=== PATIENT | male | born 1990 | race Caucasian/White ===

== ENCOUNTER 2017-04-30 13:44 | Emergency (ER) | payer OTHER ==
[~2017-04-30 13:44] MED LIST: ALLEGRA PO; BUSPAR PO; CELEXA; EFFEXOR PO; FLEXERIL10 MG PO; METHADOSE; NAPROSYN500 MG PO; NEURONTIN
[2017-04-30 14:36] LABS: BASOPHIL% 0.5 % (0-2.5); EOSINOPHIL# 0.1 X10e3 (0-0.7); EOSINOPHIL% 1.8 % (0.0-7.0); HEMATOCRIT 44.6 % (38.0-50.0); HEMOGLOBIN 15.4 gm/dL (13.0-16.0); LYMPHOCYTE# 1.7 X10e3 (1.0-3.5); LYMPHOCYTE% 26.1 % (17.0-45.0); MEAN CELL VOLUME 89.8 FL (83-96); MEAN CORPUSCULAR HGB CONC 34.5 g/dL (30-36); MEAN PLATELET VOLUME 8.3 FL (6.5-11.5); MONOCYTE# 0.7 X10e3 (0-1.0); NEUTROPHIL# 4.1 X10e3 (1.5-7.1); NEUTROPHIL% 61.6 % (40-75); PLATELET COUNT 216 X10e3 (140-420); RED BLOOD COUNT 4.96 X10e (3.90-5.60); RED CELL DISTRIBUTION WIDTH 13.5 % (11.0-15.5); WHITE BLOOD COUNT 6.7 X10e3 (4.0-10.5)
[2017-04-30 14:40] LABS: DIFF IND NO
[2017-04-30 14:52] LABS: ALBUMIN SERUM 4.2 g/dL (3.5-5.0); BILIRUBIN,TOTAL 0.6 mg/dL (0.2-2.0); CALCIUM SERUM 8.9 mg/dL (8.4-10.2); CREATININE SERUM 0.6 mg/dL (0.6-1.4); GLOM FILT RATE Estimated 136.9 mL/min (>60); POTASSIUM 3.4 mmol/L (3.5-5.1)
== END 2017-04-30 17:14 ==
LOC: SED 13:44
PROVIDERS: Emergency Medicine
DX: R45.851 Suicidal ideations (principal); R45.850 Homicidal ideations; F15.188 Other stimulant abuse with other stimulant-induced disorder; F22 Delusional disorders; F17.210 Nicotine dependence, cigarettes, uncomplicated
CPT/HCPCS: 36415; 80053; 85025; 96360; 96372; 99285; J3486

== ENCOUNTER 2017-04-30 15:00 | Inpatient (IN) | payer OTHER ==
--- NOTE | ~2017-04-30 | PN ---
Unit #: [id number] #: [id number] Patient: HOMA GONZALES [id number] [facility] [address] [place] [address] [id number] MR#: [id number] NAME: HOMA GONZALES ROOM: [facility] Age: 26 Sex: M Admission Date: 04/30/2017 : 1990 Attending Physician: Low Sierra M.D. Admitting Physician: Low Sierra M.D. Primary Care Physician: Primary Care Physician Maria Del Carmen LING PROGRESS NOTES DATE 05/04/2017 DISCUSSION The patient is abed today but awakens without difficulty. Family session does indicate an extensive substance abuse history including use of methamphetamine and "roofies." The patient is today denying any psychotic symptoms, and his detox symptoms are minimal at best. We are probably looking at a.m. discharge with CD-IOP followup. Dictated by... Low Sierra M.D. CB/corrina TD: 05/04/2017 14:50 JOB #: [id number] ANURADHA PROGRESS NOTES Page 1 of 1 X Low Sierra MD PROGRESS NOTE
--- NOTE | ~2017-04-30 | HP ---
Unit #: [id number] #: [id number] Patient: PRASHANT GONZALES [id number] [place] [address] [id number] MR#: [id number] NAME: PRASHANT GONZALES ROOM: P185 Age: 26 Sex: M Admission Date: 04/30/2017 : 1990 Attending Physician: Low Sierra M.D. Admitting Physician: Low Sierra M.D. Primary Care Physician: Primary Care Physician No HISTORY AND PHYSICAL HISTORY OF PRESENT ILLNESS Prashant is a 26 year old admitted to [facility] because of his drug use which includes IV heroin and methamphetamine. PAST MEDICAL HISTORY 1. Long history of illicit substance abuse to include IV meth and heroin. 2. Hepatitis C. 3. High blood pressure. PAST SURGICAL HISTORY Lazy eye. ALLERGIES No known drug allergies. SOCIAL HISTORY Smokes 1 pack per day. Denies alcohol. Admits to a long history of illicit substance abuse to include IV drugs. FAMILY HISTORY Medically noncontributory. REVIEW OF SYSTEMS CONSTITUTIONAL: No fever or chills. HEENT: Denies any sore throat, ear pain or runny nose. CARDIOVASCULAR: Denies chest pain, irregular heart rhythm or palpitations. CHEST: Denies shortness of breath or cough. No hemoptysis. GASTROINTESTINAL: Denies nausea, vomiting, diarrhea or chronic constipation. ENDOCRINE: Denies history of increased thirst or urination. No recent significant weight loss or gain. GENITOURINARY: Denies dysuria, frequency, or hematuria. SKIN: Denies any rashes. HEMATOLOGIC: Denies history of increased bleeding or bruising. MUSCULOSKELETAL: Denies any hot, swollen joints. No generalized muscle pain. NEUROLOGIC: Denies problems with vision or speech. No frequent, severe headaches. No numbness, tingling or weakness in any extremities. Denies loss of bladder or bowel control. CURRENT MEDICATIONS 1. Detox protocol. Unit #: [id number] #: [id number] Patient: PRASHANT GONZALES 2. Amitriptyline 50 mg q.h.s. 3. Lopressor 25 mg b.i.d. 4. Motrin p.r.n. 5. Neurontin 600 mg q. 6 hours p.r.n. PHYSICAL EXAMINATION GENERAL: Alert, well-nourished, in no apparent distress. VITAL SIGNS: Blood pressure 110/70, heart rate 80, respirations 16, temperature 98.6. WEIGHT: 170. HEIGHT: 5 feet 11 inches. SKIN: Warm and dry without rash or lesion. HEENT: Normocephalic. TMs not viewed. Oral and nasal passages clear. Conjunctivae clear. PERRLA. EOMs intact. NECK: Supple without lymphadenopathy or thyromegaly. HEART: Regular rate and rhythm without murmur. LUNGS: Clear. ABDOMEN: Soft, nontender. : Not done. EXTREMITIES: No evidence of cyanosis, clubbing or edema. Moves all without focal deficit. NEUROLOGICAL: Grossly within normal limits. Cranial Nerves: II: Visual madrid are intact. III, IV AND : Extraocular movements are intact. Pupils are equal, round and reactive to light. V: Facial sensation is grossly normal. VII: Facial movements and expression are normal. VIII: Auditory acuity grossly intact. IX, X: Uvula is midline. Phonation is normal. XI: Patient shrugs shoulders and turns head normally. XII: Tongue protrudes in the midline. Sensory and Motor Function: Sensory and motor sensation is grossly normal. Motor: moves all extremities well. Coordination: Gait is normal. Deep Tendon Reflexes: Intact. IMPRESSION Psychiatric admission. RECOMMENDATIONS PSYCHIATRIC: Per psychiatrist. MEDICAL: 1. See no contraindication to participate in facility's activities. 2. Detox per protocol. 3. Continue Lopressor. Monitor blood pressure per detox protocol. MEDICAL PROGNOSIS Good. MEDICAL CONDITION Stable. Dictated by... Mian SalterAVineet-Anna. for Clint Gomez/sandra Unit #: [id number] #: [id number] Patient: PRASHANT GONZALES TD: 05/01/2017 22:16 JOB #: [id number] HISTORY AND PHYSICAL Page 1 of 1 X Patricia Thakkar HISTORY AND PHYSICAL
--- NOTE | ~2017-04-30 | DS ---
Unit #: [id number] #: [id number] Patient: HOMA GONZALES [id number] [place] [address] [id number] I MR#: [id number] NAME: HOMA GONZALES ROOM: P185 Age: 26 Sex: M Admission Date: 04/30/2017 : 1990 Discharge Date: 05/05/2017 Attending Physician: Low Sierra M.D. Primary Care Physician: Primary Care Physician No DISCHARGE SUMMARY REASON FOR ADMISSION The patient is a 26-year-old single, white male, admitted to the [facility] unit with history of increasing suicidal ideation and polysubstance abuse. HOSPITAL COURSE The patient was admitted to the [address] [place] [address] unit and placed on suicide precautions. He was placed on routine detoxification protocol to cover alcohol, sedative hypnotics, and opioids. He was restarted on previously prescribed home medications including Elavil, Zoloft, and Lopressor, and Zydis was added on a p.r.n. basis for psychosis, so the patient required no doses of this medication. The patient unfortunately participated to no significant degree within the therapeutic milieu, choosing instead to remain in his room, sleeping much of the time. By 05/05/2017, the patient exhibited no signs or symptoms of withdrawal. Denied any suicidal or homicidal, or psychotic symptoms. Discharge was ordered. FINAL DIAGNOSES Methamphetamine use disorder; alcohol use disorder; sedative hypnotic use disorder; mood disorder, unspecified; hypertension. DISPOSITION ON DISCHARGE The patient is discharged on the following medications: Lopressor 25 mg b.i.d. for hypertension, Zoloft 200 mg daily for depression, and Elavil 50 mg at bedtime p.r.n. insomnia. DISCHARGE INSTRUCTIONS No dietary or physical restrictions were placed upon the patient at the time of discharge. FOLLOWUP Followup will take place through the auspices of community mental health resources. PROGNOSIS The patient's prognosis is considered fair. Dictated by... Low Sierra M.D. KAREN/samy TD: 05/05/2017 15:34 Unit #: [id number] #: [id number] Patient: HOMA GONZALES JOB #: [id number] DISCHARGE SUMMARY Page 1 of 1 X Low Sierra MD DISCHARGE SUMMARY
--- NOTE | ~2017-04-30 | PA ---
Unit #: [id number] #: [id number] Patient: HOMA GONZALES [id number] [place] [address] [id number] I MR#: [id number] NAME: HOMA GONZALES ROOM: P185 Age: 26 Sex: M Admission Date: 04/30/2017 : 1990 Date of Assessment: 05/01/2017 Attending Physician: Low Sierra M.D. Admitting Physician: Low Sierra M.D. Primary Care Physician: Primary Care Physician No PSYCHIATRIC ASSESSMENT IDENTIFYING INFORMATION The patient is a 26-year-old white male with a history of methamphetamine abuse and depression, admitted with positive suicidal ideation. INFORMANT(S) Patient. RELIABILITY Good. CHIEF COMPLAINT None given. HISTORY OF PRESENT ILLNESS The patient is a 26-year-old single white male with an extensive substance abuse history mainly related to his abuse of methamphetamine. Patient reported positive suicidal ideation. He had been taken to [facility] by his parents and appeared to be intoxicated at that time. He had threatened to kill himself by means of a drug overdose per his report. He has a history of polysubstance dependence and has been in multiple treatment facilities. He is also currently followed by outpatient psychiatrist per his report and has been prescribed Zoloft, Ativan and gabapentin and Elavil. When seen today, the patient is quite dysphoric. He continues to endorse positive suicidal ideation and hopelessness. PAST PSYCHIATRIC HISTORY As above. FAMILY HISTORY Noncontributory. SOCIAL HISTORY The patient lives with his parents. He had been employed at [employer] but has lost that job as he has not attended in several days. He reports substance use as noted previously including abuse of methamphetamine most prominently. He does admit to a history of intravenous drug use. He also admits to abuse of alcohol. MEDICAL HISTORY Noncontributory. MEDICATION HISTORY 1. Zoloft. Unit #: [id number] #: [id number] Patient: HOMA GONZALES 2. Metoprolol. 3. Ativan. 4. Elavil. ALLERGIES None. MENTAL STATUS EXAM At this time, reveals the patient to be a well-developed, well-nourished white male appearing stated age. He is in no apparent physical distress at time of examination. He is awake, alert, oriented in all spheres. His mood is dysphoric. His affect blunted. Speech is generally relevant and coherent. There are no gross deficits in memory or cognition noted. Intelligence is judged to be in the average range based on fund of knowledge. The patient is cooperative throughout the interview. Eye contact is poor. He continues to endorse positive suicidal ideation. He denies homicidal ideation. He denies any psychotic symptoms. His judgement and insight appear to be reasonably intact. ASSETS AND LIABILITIES Patient's assets, motivation for change, supportive family. Liabilities, ongoing substance use. ADMITTING DIAGNOSES 1. Dysthymic disorder. 2. Methamphetamine use disorder. 3. Alcohol use disorder. PSYCHIATRIC PLAN/TREATMENT GOALS The patient remains hospitalized for safety and stabilization. Routine detoxification protocol for alcohol has been initiated. Suicide precautions are in place and we will continue the patient's previously prescribed home medications. Discontinuing Ativan and Neurontin for obvious reasons. ESTIMATED LENGTH OF STAY Five to seven days. Dictated by... Low Sierra M.D. KAREN/sandra TD: 05/01/2017 21:04 JOB #: [id number] Unit #: [id number] #: [id number] Patient: ELIZABETHHOMA PSYCHIATRIC ASSESSMENT Page 1 of 1 X Low Sierra MD X PSYCHIATRIC ASSESSMENT
--- NOTE | ~2017-04-30 | PN ---
Unit #: [id number] #: [id number] Patient: HOMA GONZALES [id number] [facility] [address] [place] [address] [id number] I MR#: [id number] NAME: HOMA GONZALES ROOM: [facility] Age: 26 Sex: M Admission Date: 04/30/2017 : 1990 Attending Physician: Low Sierra M.D. Admitting Physician: Low Sierra M.D. Primary Care Physician: Primary Care Physician Maria Del Carmen LING PROGRESS NOTES DATE 05/03/2017 DISCUSSION The patient is abed resting comfortably today. He is exhibiting little in the way of signs or signs of opioid withdrawal though he did complain of some anxiety yesterday we expect discharge to take place by tomorrow. Dictated by... Low Sierra M.D. CB/miri TD: 05/04/2017 02:56 JOB #: [id number] ANURADHA PROGRESS NOTES Page 1 of 1 X Low Sierra MD PROGRESS NOTE
--- NOTE | ~2017-04-30 | PN ---
Unit #: [id number] #: [id number] Patient: HOMA GONZALES [id number] [facility] [address] [place] [address] [id number] I MR#: [id number] NAME: HOMA GONZALES ROOM: [facility] Age: 26 Sex: M Admission Date: 04/30/2017 : 1990 Attending Physician: Low Sierra M.D. Admitting Physician: Low Sierra M.D. Primary Care Physician: Primary Care Physician Maria Del Carmen LING PROGRESS NOTES DATE 05/02/2017 DISCUSSION The patient is abed resting comfortably. Staff reports no new management issues and his detox continues uneventfully. Dictated by... Low Sierra M.D. CB/sandra TD: 05/02/2017 14:22 JOB #: [id number] ANURADHA PROGRESS NOTES Page 1 of 1 X Low Sierra MD X PROGRESS NOTE
== END 2017-05-05 16:00 | DRG 897 ==
LOC: P1E 17:55
PROC: HZ2ZZZZ Detoxification Services for Substance Abuse Treatment (ICD-10-PCS; principal; 2017-04-30)
DX: F15.10 Other stimulant abuse, uncomplicated (principal); F10.10 Alcohol abuse, uncomplicated; R45.851 Suicidal ideations; F17.210 Nicotine dependence, cigarettes, uncomplicated; F34.1 Dysthymic disorder
CPT/HCPCS: 86592